=== PATIENT | male | born 1965 | race Caucasian/White ===

== ENCOUNTER 2016-11-23 14:07 | Emergency (ER) | payer MEDICAID ==
[2016-11-23 14:15] VITALS: TEMP 98.1; O2SAT 94
--- NOTE | 2016-11-23 17:12 | EDPHY ---
H & P Time Seen by Provider: 11/23/16 16:53 HPI/ROS: CHIEF COMPLAINT: Back pain HISTORY OF PRESENT ILLNESS: The patient is a 51-year-old male presenting with left lower back pain that started a few days ago. The patient was doing some heavy lifting at work a few days ago. Since then he has noticed back pain that is progressively worsening. He reports a sharp shooting pain that originates above his left buttock and radiates down his left leg. This pain is severe and remains constant. He saw a massage therapist which slightly improved his pain briefly. The pain is now causing left leg numbness and tingling. He has a history of narcotic abuse and has been taking Ibuprofen for pain. REVIEW OF SYSTEMS: A comprehensive 10 point review of systems is otherwise negative aside from elements mentioned in the history of present illness. 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 Smoking Status: Never smoked Physical Exam: General Appearance: Alert, pleasant Eyes: Pupils equal and round, no conjunctival pallor ENT, Mouth: Mucous membranes moist Neck: Normal inspection Respiratory: Lungs are clear to auscultation Cardiovascular: Regular rate and rhythm Gastrointestinal: Abdomen is soft and non-tender Back: Left buttock tenderness Neurological: A&O,motor 5/5 including dorsiflexion of the ankle and 1st toe, 1 + patellar DTR, steady gait Skin: Warm and dry Extremities: normal inspection Psychiatric: Mood and affect normal Constitutional: Initial Vital Signs Temperature (C) 36.7 C 11/23/16 14:12 Heart Rate 80 11/23/16 14:12 Respiratory Rate 18 11/23/16 14:12 Blood Pressure 158/103 H 11/23/16 14:12 O2 Sat (%) 94 11/23/16 14:12 O2 Delivery Mode Room Air Allergies/Adverse Reactions: morphine [Morphine] Allergy (Severe, Verified 11/23/16 14:11) meperidine HCl [From Demerol (PF)] Allergy (Unknown, Verified 11/23/16 14:11) Rash Home Medications: Medication Instructions Recorded Hydrocodone/APAP 5/325 [Canadian 1 - 2 tab PO Q4H PRN #15 tab 11/23/16 5/325 (*)] Pantoprazole Sodium [Protonix 40mg 40 mg PO DAILY #30 tab 11/23/16 (*)] methylPREDNISolone [Medrol Dose 1 each PO AD #1 ea 11/23/16 Agustín] Medical Decision Making ED Course/Re-evaluation: Patient presents with left sided sciatica. Patient will be discharged home with a medrol dose pack and Protonix (h/o PUD). Patient was sent home with Hydrocodone for severe pain. Departure - Departure Disposition: Home, Routine, Self-Care Clinical Impression: Sciatica Qualifiers: Laterality: left Qualified Code(s): M54.32 - Sciatica, left side Condition: Good Instructions: Sciatica (ED) Additional Instructions: No heavy lifting or bending with your back for the duration of your pain. Take the full course of Steroids as directed. I recommend taking the Protonix as directed to avoid getting an ulcer. Take Hydrocodone as directed for severe pain. You have been referred to a primary care below, please followup if you continue to have symptoms. Referrals: Chance Izquierdo MD [Medical Doctor] - As per Instructions Prescriptions: Hydrocodone/APAP 5/325 [Canadian 5/325 (*)] 1 - 2 tab PO Q4H PRN #15 tab PRN Reason: Pain, Moderate methylPREDNISolone [Medrol Dose Agustín] 1 each PO AD #1 ea Pantoprazole Sodium [Protonix 40mg (*)] 40 mg PO DAILY #30 tab Report Scribed for: Marlene Grigsby Report Scribed by: Marjorie Woods Date of Report: 11/23/16 Time of Report: 17:12 Physician Review and Approval Statement: 11/23/16 17:12 Portions of this note were transcribed by a medical nurse. I personally performed the history, physical exam, and medical decision-making; and confirmed the accuracy of the information in the transcribed note.
[2016-11-23 17:35] VITALS: BP 165/102; PULSE 75; RESP 17
== END 2016-11-23 17:35 | disposition home or self-care (01) ==
DX: M54.32 Sciatica, left side (principal)

== ENCOUNTER 2017-02-09 07:19 | Day surgery (SDC) | payer MEDICAID ==
[2017-02-09 07:56] VITALS: PULSE 77
[2017-02-09] MEDS ORDERED: LR 1,000 ML IV ONE (07:57)
--- NOTE | 2017-02-09 08:52 | PDGENHP ---
History & Physical Chief Complaint: Screening Relevant Physical Exam: GEN: NAD. Cardiac: RRR. Lungs: CTA B. Abd: Soft, nt, nd
--- NOTE | 2017-02-09 08:58 | PDANEPAE ---
ANE Past Medical History - Cardiovascular History Hx Hypertension: Yes Hx Arrhythmias: No Hx Chest Pain: No Hx Coronary Artery / Peripheral Vascular Disease: No Hx CHF / Valvular Disease: No Hx Palpitations: No Cardiovascular History Comment: pt states "elevated BP"- no Rx given by PCP - Pulmonary History Hx COPD: No Hx Asthma/Reactive Airway Disease: No Hx Recent Upper Respiratory Infection: No Hx Oxygen in Use at Home: No Hx Sleep Apnea: No Sleep Apnea Screening Result - Last Documented: Negative - Neurologic History Hx Cerebrovascular Accident: No Hx Seizures: No Hx Dementia: No - Endocrine History Hx Diabetes: No - Renal History Hx Renal Disorders: No - Liver History Hx Hepatic Disorders: No - Neurological & Psychiatric Hx Hx Neurological and Psychiatric Disorders: Yes Neurological / Psychiatric History Comment: Possible 3 herniated discs. very sharp pain in low back radiating down L thigh, calf and L ft. LARON done x1 - Cancer History Hx Cancer: No - Congenital Disorder History Hx Congenital Disorders: No - GI History Hx Gastrointestinal Disorders: No Gastrointestinal History Comment: screening colonoscopy - Other Health History Other Health History: none - Chronic Pain History Chronic Pain: Yes (back,L leg) - Surgical History Prior Surgeries: jejunoduodenostomy '08. R inguinal hernia repair'06 ANE Review of Systems Review of Systems: - Exercise capacity METS (RN): 4 METS ANE Patient History - Allergies Allergies/Adverse Reactions: morphine [Morphine] Allergy (Severe, Verified 02/03/17 16:00) Rash meperidine HCl [From Demerol (PF)] Allergy (Unknown, Verified 02/03/17 16:00) Vomiting - Home Medications Home Medications: GABAPENTIN 02/03/17 [Last Taken 02/08/17 05:00] oxyCODONE CR 02/03/17 [Last Taken 02/08/17 22:00] - NPO status NPO Since - Liquids (Date): 02/09/17 NPO Since - Liquids (Time): 05:30 NPO Since - Solids (Date): 02/08/17 NPO Since - Solids (Time): 02:00 - Smoking Hx Smoking Status: Heavy smoker ANE Labs/Vital Signs - Vital Signs Blood Pressure: 150/96 Heart Rate: 77 Respiratory Rate: 16 O2 Sat (%): 97 Height: 165.1 cm Weight: 68.039 kg ANE Physical Exam - Airway Mallampati Score: Class 2 - ASA Status ASA Status: II ANE Anesthesia Plan Total IV Anesthesia: Yes
[2017-02-09] MEDS ORDERED: PROPOFOL/EMULSION 500 MG/50 ML BOTTLE IV ONE (09:00)
[2017-02-09] MEDS ORDERED: PROPOFOL 200 MG/20 ML VIAL ONE (10:16)
--- NOTE | 2017-02-09 10:32 | GIREPORT ---
[facility] [place] Surgical Services - Endoscopy Department Patient Name: Jason Mendoza Procedure Date: 02/09/2017 9:54 AM Patient Type: Outpatient Attending / ER Physician: Ad Cox MD Procedure: Colonoscopy Indications: Screening for colorectal malignant neoplasm Providers: Ad Cox MD Medicines: Monitored Anesthesia Care Complications: No immediate complications. Description of Procedure: After obtaining informed consent, the scope was passed under direct vis ion. Throughout the procedure, the patient's blood pressure, pulse, and oxyg en saturations were monitored continuously. The Colonoscope with irrigatio n channel was introduced through the anus and advanced to the terminal il eum, with identification of the appendiceal orifice and IC valve. The colono scopy was performed without difficulty. The patient tolerated the procedure w ell. The quality of the bowel preparation was good. Findings: The perianal and digital rectal examinations were normal. The terminal ileum appeared normal. Three sessile polyps were found in the rectum. The polyps were 1 to 2 m m in size. These polyps were removed with a cold biopsy forceps. Resection a nd retrieval were complete. Verification of patient identification for the specimen was done by the physician and nurse using the patient's name a nd date. Estimated blood loss was minimal. 14 sessile polyps were found in the rectum. The polyps were 4 to 7 mm i n size. These polyps were removed with a cold snare. Resection and retrie fede were complete. Verification of patient identification for the specimen was done by the physician and nurse using the patient's name and date . Estimated blood loss was minimal. A 10 mm polyp was found in the sigmoid colon. The polyp was sessile. Th e polyp was removed with a hot snare. Resection and retrieval were comple te. Verification of patient identification for the specimen was done by the physician and nurse using the patient's name and date. Estimated blood loss was minimal. The retroflexed view of the distal rectum and anal verge was normal and showed no anal or rectal abnormalities. Estimated Blood Loss: Estimated blood loss: none. Post Op Diagnosis: - The examined portion of the ileum was normal. - Three 1 to 2 mm polyps in the rectum, removed with a cold biopsy forc eps. Resected and retrieved. - 14 4 to 7 mm polyps in the rectum, removed with a cold snare. Resecte d and retrieved. - One 10 mm polyp in the sigmoid colon, removed with a hot snare. Resec krunal and retrieved. - The distal rectum and anal verge are normal on retroflexion view. Recommendation: - Discharge patient to home (with escort). - Resume previous diet. - Continue present medications. - Repeat colonoscopy in 3 years for surveillance. - Await pathology results. Results are available within 10 days. - Thank you for allowing me to participate in the care of your patient. Attending Participation: I personally performed the entire procedure. Ad Cox MD Ad Cox MD 02/09/2017 10:31:36 AM This report has been signed electronicallyDachico Cox MD Number of Addenda: 0 Note Initiated On: 02/09/2017 9:54 AM Total Procedure Duration Time 0 hours 27 minutes 38 seconds [email or web address]
[2017-02-09] MEDS ORDERED: ONDANSETRON 4 MG/2 ML VIAL IVP PRN (10:34)
[2017-02-09] MEDS ORDERED: NALOXONE HCL 0.4 MG/ML INJ IVP PRN (10:34)
[2017-02-09] MEDS ORDERED: fentaNYL 100 MCG/2 ML INJ IVP PRN (10:34)
[2017-02-09] MEDS ORDERED: ALBUTEROL 3 ML DEYVIAL IH PRN (10:34)
[2017-02-09] MEDS ORDERED: LR 500 ML IV PRN (10:34)
--- NOTE | 2017-02-09 10:35 | POSTANESTH ---
Post Anesthetic Evaluation Cardiovascular Status: Normal, Stable Respiratory Status: Normal, Stable Level of Consciousness/Mental Status: Can Participate in Eval Pain Control: Adequate, Prn Tx Ordered Nausea/Vomiting Control: Adequate, Prn Tx Ordered Complications Possibly Related to Anesthesia: None Noted
[2017-02-09 10:46] VITALS: TEMP 98.4
[2017-02-09 11:18] VITALS: RESP 16
[2017-02-09 11:59] VITALS: BP 153/98; O2SAT 96
== END 2017-02-09 11:40 | disposition home or self-care (01) ==
LOC: FSGY 07:19
PROVIDERS: ATTEND Internal Medicine Gastroenterology
PROC: 0DBP8ZX Excision of Rectum, Via Natural or Artificial Opening Endoscopic, Diagnostic (ICD-10-PCS; principal; 2017-02-09 08:45)
PROC: 0DBN8ZX Excision of Sigmoid Colon, Via Natural or Artificial Opening Endoscopic, Diagnostic (ICD-10-PCS; principal; 2017-02-09 08:45)
DX: Z12.11 Encounter for screening for malignant neoplasm of colon (principal); D12.7 Benign neoplasm of rectosigmoid junction; K62.1 Rectal polyp; F17.200 Nicotine dependence, unspecified, uncomplicated
CPT/HCPCS: J2704